=== PATIENT | female | born 1995 | race Caucasian/White ===

== ENCOUNTER → 2019-03-25 | Outpatient (CLI) | payer OTHER ==
--- NOTE | 2019-03-26 01:20 | MR ---
EXAMINATION TYPE: MR brain wo/w con DATE OF EXAM: 03/25/2019 COMPARISON: None HISTORY: Optic papillitis, bilateral TECHNIQUE: Multiplanar, multisequence images of the brain and brainstem is performed without and with IV contras t, utilizing 7 mL intravenous Gadavist . FINDINGS: There is mild enlargement of the ventricles. There is thinning of the corpus callosum. Ther e is no evidence of any cerebral white matter edema. Diffusion images show no evidence of a cortical infarct. There is no evidence of cerebral cortical ed gavin. The globes are symmetric. There is no evidence of retro-orbital mass. I do not see any significant edema of the optic nerves. Optic nerves are not enlarged. Contrast images show normal contrast opacification of the venous sinuses. There is no pathologic enha ncement. On the FLAIR images there is a single 4 mm focus of increased signal at the farris-white matter junctio n right posterior frontal lobe of doubtful significance. The brainstem is intact. Cerebellum is intact. IMPRESSION: Minimal hydrocephalus for the patient's young age. No cerebral edema. I do not see any ev idence for demyelinating disease. Mild thinning of the corpus callosum of uncertain significance.
== END | disposition home or self-care (01) ==
LOC: RADMRIMAIN 08:29
PROVIDERS: ATTEND Ophthalmology
DX: R94.02 Abnormal brain scan (principal)
CPT/HCPCS: 70553; A9585

== ENCOUNTER 2020-10-28 06:58 | Emergency (ER) | payer OTHER ==
[2020-10-28 07:03] VITALS: RESP 18; TEMP 97.7
[2020-10-28] MEDS ORDERED: HYDROmorphone 0.5 MG/0.5 ML SYRINGE IVP STA (07:26)
[2020-10-28] MEDS ORDERED: SODIUM CHLORIDE 0.9% 1,000 ML IV STA (07:26)
[2020-10-28] MEDS ORDERED: ONDANSETRON 4 MG/2 ML VIAL IVP STA (07:30)
--- NOTE | 2020-10-28 07:33 | ED ---
General Adult HPI - General Chief complaint: Abdominal Pain Stated complaint: ABD Pain Time Seen by Provider: 10/28/20 07:08 Source: patient Mode of arrival: wheelchair Limitations: no limitations - History of Present Illness Initial comments: 25-year-old female presents to the emergency room for abdominal pain. Patient reports that she had a medically induced with her first pill on Friday and her second toe on . Patient states she started to have bleeding like a period on Friday which she had a supposed to happen. However today she had severe abdominal pain so presented to the emergency room. Patient states she was about 6 weeks when she underwent the but believes her last period was August 26. Patient reports his was done in [place] at [facility]. She sees Dr Meyer out of [facility]. Patient has no other complaints at this time including shortness of breath, chest pain, fabienne sea or vomiting, headache, or visual changes. - Related Data Previous Rx's Medication Instructions Recorded Ibuprofen [Motrin] 600 mg PO Q8HR PRN #15 tab 02/26/16 SILVER sulfADIAZINE CREAM 1 applic TOPICAL BID #1 tube 02/26/16 [Silvadene Cream] Allergies Allergy/AdvReac Type Severity Reaction Status Date / Time No Known Allergies Allergy Verified 10/28/20 07:03 Review of Systems ROS Statement: Those systems with pertinent positive or pertinent negative responses have been documented in the HPI. ROS Other: All systems not noted in ROS Statement are negative. Past Medical History Past Medical History: Skin Disorder History of Any Multi-Drug Resistant Organisms: None Reported Additional Past Surgical History / Comment(s): shobha Past Psychological History: Anxiety, Depression Smoking Status: Vaper Past Alcohol Use History: None Reported Past Drug Use History: Marijuana General Exam Limitations: no limitations General appearance: alert, in no apparent distress Head exam: Present: atraumatic, normocephalic, normal inspection Eye exam: Present: normal appearance, PERRL, EOMI. Absent: scleral icterus, conjunctival injection, periorbital swelling ENT exam: Present: normal exam, mucous membranes moist Neck exam: Present: normal inspection, full ROM. Absent: tenderness, meni ngismus, lymphadenopathy Respiratory exam: Present: normal lung sounds bilaterally. Absent: respiratory distress, wheezes, rales, rhonchi, stridor Cardiovascular Exam: Present: regular rate, normal rhythm, normal heart sounds. Absent: systolic murmur, diastolic murmur, rubs, gallop, clicks GI/Abdominal exam: Present: soft, tenderness (generalized lower abdominal tenderness), normal bowel sounds. Absent: distended, guarding, rebound, rigid External exam: Present: normal external exam. Absent: erythema, swelling, lesions, lacerations Speculum exam: Present: vaginal bleeding (minimal), tissue (removed). Absent: normal speculum exam, erythema, vaginal discharge, cervical discharge By manual exam: Present: normal by manual exam. Absent: cervical motion tenderness, adnexal tenderness, adnexal mass, uterine enlargement, uterine tenderness Course Vital Signs 10/28/20 10/28/20 06:59 09:03 Temperature 97.7 F Pulse Rate 70 68 Respiratory 18 18 Rate Blood Pressure 131/86 110/70 O2 Sat by Pulse 100 98 Oximetry Medical Decision Making - Medical Decision Making Vitals are stable. CBC CMP unremarkable. Urinalysis does show greater than 182 red blood cells which are likely secondary to vaginal bleeding. On on pelvic exam patient did have some tissue in the vaginal canal which is removed. Minimal vaginal bleeding. ultrasound does report a thin-walled right ovarian cyst. Nonspecific endometrial findings showing 16 mm without significant internal vascularity. No pole. No intrauterine id entified. Patient likely passed fetus as she does report there was an IUP at the clinic. She did have some clot and tissue in the vaginal canal that was removed. Repeat abdominal exam was benign, no tenderness. Patient is stable for outpatient follow-up with strict return parameters. We will repeat patient's hCG in 2 days. Patient was given RhoGAM here as she is A- blood type. She has an DRAPERY ROD ASSEMBLER and [facility] will follow up with them first thing Friday morning. - Lab Data Result diagrams: 10/28/20 07:48 10/28/20 07:48 Lab Results 10/28/20 10/28/20 10/28/20 Range/Units 07:48 07:48 08:45 WBC 12.7 H (3.8-10.6) k/uL RBC 4.51 (3.80-5.40) m/uL Hgb 14.0 (11.4-16.0) gm/dL Hct 39.6 (34.0-46.0) % MCV 87.7 (80.0-100.0) fL MCH 31.0 (25.0-35.0) pg MCHC 35.4 (31.0-37.0) g/dL RDW 12.4 (11.5-15.5) % Plt Count 194 (150-450) k/uL MPV 7.7 Neutrophils % 78 % Lymphocytes % 14 % Monocytes % 5 % Eosinophils % 1 % Basophils % 0 % Neutrophils # 9.8 H (1.3-7.7) k/uL Lymphocytes # 1.8 (1.0-4.8) k/uL Monocytes # 0.6 (0-1.0) k/uL Eosinophils # 0.2 (0-0.7) k/uL Basophils # 0.0 (0-0.2) k/uL Sodium 135 L (137-145) mmol/L Potassium 4.4 (3.5-5.1) mmol/L Chloride 107 (98-107) mmol/L Carbon Dioxide 18 L (22-30) mmol/L Anion Gap 10 mmol/L BUN 11 (7-17) mg/dL Creatinine 0.49 L (0.52-1.04) mg/dL Est GFR (CKD-EPI)AfAm >90 (>60 ml/min/1.73 sqM) Est GFR (CKD-EPI)NonAf >90 (>60 ml/min/1.73 sqM) Glucose 121 H (74-99) mg/dL Calcium 9.4 (8.4-10.2) mg/dL Total Bilirubin 0.8 (0.2-1.3) mg/dL AST 33 (14-36) U/L ALT 15 (4-34) U/L Alkaline Phosphatase 53 (38-126) U/L Total Protein 7.2 (6.3-8.2) g/dL Albumin 4.2 (3.5-5.0) g/dL HCG, Quant 93689.5 mIU/mL Urine Color Yellow Urine Appearance Cloudy H (Clear) Urine pH 7.0 (5.0-8.0) Ur Specific [place] 1.021 (1.001-1.035) Urine Protein Trace H (Negative) Urine Glucose (UA) Negative (Negative) Urine Ketones 1+ H (Negative) Urine Blood Large H (Negative) Urine Nitrite Negative (Negative) Urine Bilirubin Negative (Negative) Urine Urobilinogen <2.0 (<2.0) mg/dL Ur Leukocyte Esterase Trace H (Negative) Urine RBC >182 H (0-5) /hpf Urine WBC 3 (0-5) /hpf Ur Squamous Epith Cells 1 (0-4) /hpf Amorphous Sediment Rare H (None) /hpf Urine Bacteria Rare H (None) /hpf Urine Mucus Occasional H (None) /hpf Blood Type Blood Type Confirm Blood Type Recheck Bld Type Recheck Status Antibody Screen Spec Expiration Date 10/28/20 10/28/20 Range/Units 08:50 08:54 WBC (3.8-10.6) k/uL RBC (3.80-5.40) m/uL Hgb (11.4-16.0) gm/dL Hct (34.0-46.0) % MCV (80.0-100.0) fL MCH (25.0-35.0) pg MCHC (31.0-37.0) g/dL RDW (11.5-15.5) % Plt Count (150-450) k/uL MPV Neutrophils % % Lymphocytes % % Monocytes % % Eosinophils % % Basophils % % Neutrophils # (1.3-7.7) k/uL Lymphocytes # (1.0-4.8) k/uL Monocytes # (0-1.0) k/uL Eosinophils # (0-0.7) k/uL Basophils # (0-0.2) k/uL Sodium (137-145) mmol/L Potassium (3.5-5.1) mmol/L Chloride (98-107) mmol/L Carbon Dioxide (22-30) mmol/L Anion Gap mmol/L BUN (7-17) mg/dL Creatinine (0.52-1.04) mg/dL Est GFR (CKD-EPI)AfAm (>60 ml/min/1.73 sqM) Est GFR (CKD-EPI)NonAf (>60 ml/min/1.73 sqM) Glucose (74-99) mg/dL Calcium (8.4-10.2) mg/dL Total Bilirubin (0.2-1.3) mg/dL AST (14-36) U/L ALT (4-34) U/L Alkaline Phosphatase (38-126) U/L Total Protein (6.3-8.2) g/dL Albumin (3.5-5.0) g/dL HCG, Quant mIU/mL Urine Color Urine Appearance (Clear) Urine pH (5.0-8.0) Ur Specific [place] (1.001-1.035) Urine Protein (Negative) Urine Glucose (UA) (Negative) Urine Ketones (Negative) Urine Blood (Negative) Urine Nitrite (Negative) Urine Bilirubin (Negative) Urine Urobilinogen (<2.0) mg/dL Ur Leukocyte Esterase (Negative) Urine RBC (0-5) /hpf Urine WBC (0-5) /hpf Ur Squamous Epith Cells (0-4) /hpf Amorphous Sediment (None) /hpf Urine Bacteria (None) /hpf Urine Mucus (None) /hpf Blood Type A Negative Blood Type Confirm A Negative Blood Type Recheck No Previous Record Bld Type Recheck Status CABO Indicated Antibody Screen NEGATIVE Spec Expiration Date 10/31/20202349 Disposition Clinical Impression: Vaginal bleeding, Elevated serum hCG, Embolism following medical Disposition: HOME SELF-CARE Condition: Good Instructions (If sedation given, give patient instructions): Miscarriage (ED) Additional Instructions: Please repeat hCG at outpatient lab in 2 days. Follow-up with your DRAPERY ROD ASSEMBLER as soon as possible. If you have worsening symptoms such as worsening pain or worsening bleeding return to the emergency room. Is patient prescribed a controlled substance at d/c from ED?: No Referrals: Ney Solano MD [Primary Care Provider] - 1-2 days Mahi Ortiz MD [STAFF PHYSICIAN] - 1-2 days Time of Disposition: 10:26
[2020-10-28 08:00] LABS: Basophils % (A) 0 %; Eosinophils # (A) 0.2 k/uL (0-0.7); Eosinophils % (A) 1 %; HCT 39.6 % (34.0-46.0); Lymphocytes # (A) 1.8 k/uL (1.0-4.8); Lymphocytes % (A) 14 %; MCHC 35.4 g/dL (31.0-37.0); MCV 87.7 fL (80.0-100.0); Mean Platelet Volume 7.7; Monocytes # (A) 0.6 k/uL (0-1.0); Monocytes % (A) 5 %; Neutrophils # (A) 9.8 k/uL (1.3-7.7); Neutrophils % (A) 78 %; Platelet Count 194 k/uL (150-450); RBC 4.51 m/uL (3.80-5.40); RDW 12.4 % (11.5-15.5); WBC 12.7 k/uL (3.8-10.6)
[2020-10-28 08:08] LABS: ALT 15 U/L (4-34); African American GFR (CKD) >90 (>60 ml/min/1.73 sqM); Anion Gap 10 mmol/L; Blood Urea Nitrogen 11 mg/dL (7-17); Calcium 9.4 mg/dL (8.4-10.2); Carbon Dioxide 18 mmol/L (22-30); Chloride 107 mmol/L (98-107); Glucose 121 mg/dL (74-99); Non-African American GFR(CKD) >90 (>60 ml/min/1.73 sqM); Sodium 135 mmol/L (137-145); Total Bilirubin 0.8 mg/dL (0.2-1.3)
[2020-10-28 08:26] LABS: Potassium 4.4 mmol/L (3.5-5.1)
[2020-10-28 08:27] LABS: AST 33 U/L (14-36); Albumin 4.2 g/dL (3.5-5.0); Alkaline Phosphatase 53 U/L (38-126); Total Protein 7.2 g/dL (6.3-8.2)
[2020-10-28 09:03] LABS: HCG,Quantitative Serum 16898.5 mIU/mL
[2020-10-28 09:05] LABS: Amorphous Sediment,Urine Rare /hpf; Appearance,Urine Cloudy (Clear); Bacteria,Urine Rare /hpf; Bilirubin,Urine Negative (Negative); Blood,Urine Large (Negative); Color,Urine Yellow; Glucose,Urine (UA) Negative (Negative); Ketones,Urine 1+ (Negative); Leukocyte Esterase,Urine Trace (Negative); Mucus,Urine Occasional /hpf; Nitrite,Urine Negative (Negative); Protein,Urine Trace (Negative); RBC,Urine >182 /hpf (0-5); Specific Gravity,Urine 1.021 (1.001-1.035); Squamous Epithelial Cell,Urine 1 /hpf (0-4); Urobilinogen,Urine <2.0 mg/dL (<2.0); WBC,Urine 3 /hpf (0-5)
--- NOTE | 2020-10-28 09:13 | US ---
EXAMINATION TYPE: Transabdominal DATE OF EXAM: 10/28/2020 8:54 AM COMPARISON: NONE CLINICAL HISTORY: pain, medical ABO 10/26. Medical 3 days ago, cramping and bleeding x 3 days , 1, 1 EXAM PERFORMED: Transabdominal (TA) EXAM MEASUREMENTS: GESTATIONAL AGE / DATING Physician Established: Not yet established Dates by LMP: (9 weeks/0 days) EDC: 06/02/2021 Dates by First Scan: No previous this is first scan Dates by Current Scan for: No IUP seen at this time MATERNAL ANATOMY Uterus: 7.9 x 3.6 x 4.3cm, anteverted Endometrium: 1.6cm Right Ovary: 5.5 x 3.5 x 3.7cm, 2.7 x 3.0 x 3.4cm cyst Left Ovary: 2.4 x 1.4 x 1.6cm Post CDS / Adnexa: wnl Presence of free fluid: no GESTATION / SURVEY IUP: No IUP seen at this time Date of LMP: 08/26/2020 Beta HcG (if available): Not available at time of exam Heterogeneous anteverted uterus. Endometrium somewhat poorly seen measuring up to 16 mm without signi ficant internal vascularity. No gestational sac, yolk sac, or pole. No free fluid. Both ovaries seen with 2 thin-walled cysts in the right ovary, largest measures 5.5 cm in diameter. IMPRESSION: Note is made of 2 thin-walled right ovarian cysts. Nonspecific endometrial findings. No i ntrauterine identified.
[2020-10-28] MEDS ORDERED: Rhogam IMMUNE GLOBULIN 1,500 UNIT/1 ML IM STA (09:56)
[2020-10-28 10:39] VITALS: BP 114/79; PULSE 72
== END 2020-10-28 10:41 | disposition home or self-care (01) ==
LOC: EC 06:58
DX: N93.9 Abnormal uterine and vaginal bleeding, unspecified (principal); F32.9 Major depressive disorder, single episode, unspecified; F41.9 Anxiety disorder, unspecified; F12.90 Cannabis use, unspecified, uncomplicated; R89.1 Abnormal level of hormones in specimens from other organs, systems and tissues
CPT/HCPCS: 36415; 86900; 86901; 80053; 85025; 86850; 81001; 84702; 76801; 99284; 96372; 96374; 96375; 96361; J2790; J2405; J1170

== ENCOUNTER 2021-05-11 05:37 | Emergency (ER) | payer OTHER ==
[2021-05-11 05:42] VITALS: BP 118/82; PULSE 80; RESP 16; TEMP 98.5
[2021-05-11] MEDS ORDERED: AMOXIC-POT CLAV 875MG STARTER PACK 2 TAB BTL PO STA (06:26)
[2021-05-11] MEDS ORDERED: IBUPROFEN 600 MG TAB PO STA (06:28)
--- NOTE | 2021-05-11 06:28 | ED ---
General Adult HPI - General Chief complaint: ENT Stated complaint: RT ear pain Time Seen by Provider: 05/11/21 06:08 Source: patient Mode of arrival: ambulatory Limitations: no limitations - History of Present Illness Initial comments: 25-year-old female presents to the emergency room for right ear pain. Patient has had right ear pain for the past 3 days that worsened this morning around 3 AM. Patient denies headache but does admit to cold symptoms over the past week or so. Tested negative for COVID-19. No fevers.Patient has no other complaints at this time including shortness of breath, chest pain, abdominal pain, nausea or vomiting, headache, or visual changes. - Related Data Previous Rx's Medication Instructions Recorded Ibuprofen [Motrin] 600 mg PO Q8HR PRN #15 tab 02/26/16 SILVER sulfADIAZINE CREAM 1 applic TOPICAL BID #1 tube 02/26/16 [Silvadene Cream] Amoxicillin/Potassium Clav 1 tab PO Q12HR #20 tab 05/11/21 [Augmentin 875-125 Tablet] Allergies Allergy/AdvReac Type Severity Reaction Status Date / Time No Known Allergies Allergy Verified 05/11/21 05:39 Review of Systems ROS Statement: Those systems with pertinent positive or pertinent negative responses have been documented in the HPI. ROS Other: All systems not noted in ROS Statement are negative. Past Medical History Past Medical History: Skin Disorder History of Any Multi-Drug Resistant Organisms: None Reported Additional Past Surgical History / Comment(s): nasel Past Psychological History: Anxiety, Depression Smoking Status: Vaper Past Alcohol Use History: None Reported Past Drug Use History: Marijuana General Exam Limitations: no limitations General appearance: alert, in no apparent distress Head exam: Present: atraumatic Eye exam: Present: normal appearance, PERRL, EOMI. Absent: scleral icterus, conjunctival injection ENT exam: Present: normal exam, mucous membranes moist. Absent: TM's normal bilaterally (Right tympanic membrane appears erythematous and bulging) Neck exam: Present: normal inspection, full ROM. Absent: tenderness Respiratory exam: Present: normal lung sounds bilaterally. Absent: respiratory distress, wheezes Cardiovascular Exam: Present: regular rate, normal rhythm, normal heart sounds Course Vital Signs 05/11/21 05:40 Temperature 98.5 F Pulse Rate 80 Respiratory 16 Rate Blood Pressure 118/82 O2 Sat by Pulse 98 Oximetry Medical Decision Making - Medical Decision Making Patient will be treated with Augmentin for otitis media. Will follow up with her doctor and return here for any worsening symptoms. Disposition Clinical Impression: Otitis media Disposition: HOME SELF-CARE Condition: Good Instructions (If sedation given, give patient instructions): Ear Infection (ED) Additional Instructions: Please take antibiotic as directed. Take Motrin and Tylenol for pain. Follow- up with your doctor or ENT. Return to the emergency room for any worsening symptoms. Prescriptions: Amoxicillin/Potassium Clav [Augmentin 875-125 Tablet] 1 tab PO Q12HR #20 tab Is patient prescribed a controlled substance at d/c from ED?: No Referrals: Ney Solano MD [Primary Care Provider] - 1-2 days Kayode Orozco MD [STAFF PHYSICIAN] - 1-2 days Time of Disposition: 06:27
== END 2021-05-11 06:38 | disposition home or self-care (01) ==
LOC: EC 05:37
DX: H66.90 Otitis media, unspecified, unspecified ear (principal); F41.9 Anxiety disorder, unspecified; F32.A Depression, unspecified; F17.290 Nicotine dependence, other tobacco product, uncomplicated; F12.90 Cannabis use, unspecified, uncomplicated
CPT/HCPCS: 99282

== ENCOUNTER 2021-12-01 23:45 | Inpatient (IN) | payer OTHER ==
[2021-12-02] MEDS ORDERED: HYDROmorphone (PF) 1 MG/ML ONE (00:17)
[2021-12-02] MEDS ORDERED: SUCCINYLCHOLINE CHLORIDE 200 MG/10 ML VIAL IV ONE (00:17)
[2021-12-02] MEDS ORDERED: ONDANSETRON 4 MG/2 ML VIAL ONE (00:17)
[2021-12-02] MEDS ORDERED: fentaNYL (PF) 50 MCG/ML 2 ML AMP ONE (00:17)
[2021-12-02] MEDS ORDERED: OXYTOCIN 10 UNIT/ML 1 ML VIAL ONE (00:17)
[2021-12-02] MEDS ORDERED: PROPOFOL 10 MG/ML 20 ML VIAL IV ONE (00:17)
[2021-12-02] MEDS ORDERED: OXYTOCIN 30 UNITS/500 ML NS BAG IV ONE (00:17)
[2021-12-02] MEDS ORDERED: ceFAZolin 1,000 MG VIAL ONE (00:17)
[2021-12-02] MEDS ORDERED: SIMETHICONE 80 MG CHEWABLE PO PRN (01:00)
[2021-12-02] MEDS ORDERED: diphenhydrAMINE 50 MG/ML 1 ML VIAL IVP PRN (01:00)
[2021-12-02] MEDS ORDERED: LANOLIN CREAM 5 GM TUBE TOPICAL PRN (01:00)
[2021-12-02] MEDS ORDERED: NALOXONE 0.4 MG/ML 1 ML VIAL IV PRN (01:00)
[2021-12-02] MEDS ORDERED: METOCLOPRAMIDE 5 MG/ML 2 ML VIAL IVP PRN (01:00)
[2021-12-02] MEDS ORDERED: OXYTOCIN 30 UNITS/500 ML NS 30 UNIT in SALINE 1 500ML.BAG IV SCH (01:00)
[2021-12-02] MEDS ORDERED: ONDANSETRON 4 MG/2 ML VIAL IVP PRN (01:00)
[2021-12-02] MEDS ORDERED: diphenhydrAMINE 25 MG CAP PO PRN (01:00)
[2021-12-02] MEDS ORDERED: ZOLPIDEM 5 MG TAB PO PRN (01:00)
[2021-12-02] MEDS ORDERED: Rhogam IMMUNE GLOBULIN 1,500 UNIT/1 ML IM ONE (01:00)
--- NOTE | 2021-12-02 01:29 | P.HPOB ---
History of Present Illness H&P Date: 12/02/21 Chief Complaint: Vaginal bleeding and abdominal pain Please note this H&P is dictated post delivery due to the emergency nature of the clinical situation. This patient is a 26-year-old 2 para 0 female estimated date of confinement 12/28/2021 estimated gestational age 36-2/7 weeks gestation who resented to labor and delivery with complaints of leaking of fluid and abdominal pain after having intercourse. On arrival to labor and delivery, patient is noted to be having copious amount of vaginal bleeding, abdominal tenderness, and repetitive late decelerations. Patient was immediately taken to the operating room for emergency . Review of the patient's chart shows that she transferred to Dr. Serrano at [address] Sr and has been watched for intrauterine growth restriction. Most recent ultrasound showed the baby to be less than the 10th percentile. Ultrasound on November 26 shows the baby to be 3 lbs. 12 oz. otherwise appears to been uncomplicated, other than marijuana use. Review of Systems Genitourinary: Reports as per HPI, Reports abnormal vaginal bleeding, Reports Past Medical History Past Medical History: No Reported History, Skin Disorder History of Any Multi-Drug Resistant Organisms: None Reported Past Surgical History: No Surgical Hx Reported Additional Past Surgical History / Comment(s): shobha Past Psychological History: Anxiety, Depression Smoking Status: Vaper Past Alcohol Use History: None Reported Past Drug Use History: Marijuana Medications and Allergies Home Medications Medication Instructions Recorded Confirmed Type Ibuprofen [Motrin] 600 mg PO Q8HR PRN #15 tab 02/26/16 Rx SILVER sulfADIAZINE CREAM 1 applic TOPICAL BID #1 tube 02/26/16 Rx [Silvadene Cream] Amoxicillin/Potassium Clav 1 tab PO Q12HR #20 tab 05/11/21 Rx [Augmentin 875-125 Tablet] Allergies Allergy/AdvReac Type Severity Reaction Status Date / Time No Known Allergies Allergy Verified 05/11/21 05:39 Exam - OBG Physical Exam Abdomen: bowel sounds normal, no diffuse tenderness, no bruit present, no guarding noted, no hepatomegaly, no splenomegaly, no mass Vulva: both: normal Vagina: Vaginal bleeding Uterus: Abdomen appears small for dates. Results blood work shows she is A-, hepatitis B is nonreactive, HIV is nonreactive, RPR is nonreactive, patient received RhoGAM on October 17. Ultrasound on November 26 showed the baby 3 lbs. 12 oz. which is much less than the 10th percentile. Assessment and Plan Assessment: This is a pleasant 26-year-old 2 para 0 female 36-2/7 weeks gestation presented to labor and delivery with clinical placental abruption, symmetric IUGR, and category 3 heart tones. Patient was taken immediately from triage to the operating room and underwent an emergent section (please see dictated operative note). I did discuss very briefly with the patient and her partner the clinical findings and need for immediate delivery by general anesthetic. She understood and wished to proceed. (1) 36 weeks gestation of Current Visit: Yes Status: Acute Code(s): Z3A.36 - 36 WEEKS GESTATION OF SNOMED Code(s): 40548141 (2) Symmetric IUGR Current Visit: Yes Status: Acute Code(s): OPR6460 - SNOMED Code(s): 467861402 (3) Placenta abruption, delivered, current hospitalization Current Visit: Yes Status: Acute Code(s): O45.90 - PREMATURE SEPARATION OF PLACENTA, UNSP, UNSP TRIMESTER SNOMED Code(s): 920801497
[2021-12-02] MEDS: LACTATED RINGERS 1,000 ML IV SCH ×3 (01:37→19:25)
[2021-12-02 01:52] LABS: Basophils % (A) 0 %; Eosinophils # (A) 0.1 k/uL (0-0.7); Eosinophils % (A) 1 %; HCT 39.1 % (34.0-46.0); HGB 12.6 gm/dL (11.4-16.0); Lymphocytes # (A) 1.8 k/uL (1.0-4.8); Lymphocytes % (A) 13 %; MCH 29.4 pg (25.0-35.0); MCHC 32.2 g/dL (31.0-37.0); MCV 91.5 fL (80.0-100.0); Mean Platelet Volume 10.3; Monocytes # (A) 0.8 k/uL (0-1.0); Monocytes % (A) 6 %; Neutrophils # (A) 10.7 k/uL (1.3-7.7); Neutrophils % (A) 80 %; Platelet Count 201 k/uL (150-450); RBC 4.27 m/uL (3.80-5.40); RDW 13.1 % (11.5-15.5); WBC 13.5 k/uL (3.8-10.6)
--- NOTE | 2021-12-02 01:54 | P.OP ---
Date of Procedure: 12/02/21 Preoperative Diagnosis: #1: 36-2/7 week intrauterine . #2: Clinical placental abruption #3: Category 3 heart tones #4: Symmetric IUGR Postoperative Diagnosis: Same Procedure(s) Performed: Emergent primary low transverse section Anesthesia: HERLINDA Surgeon: Ignacio Hess Paper Tube Machine Operator #1: Opal Landon Estimated Blood Loss (ml): 600 Pathology: other (Placenta) Condition: stable Disposition: floor Indications for Procedure: Please see dictated H&P on this patient's admission. In brief summary this is a 26-year-old 2 para 0 female 36-2/7 weeks gestation admitted to labor and delivery with concerns for leaking of fluid and found to have vaginal bleeding, abdominal pain, and category 3 heart tones. The nursing staff felt patient was having a clinical abruption and contacted me immediately. On my way to the hospital I did contact my blood and plasma laboratory assistant and also contacted the staff to let anesthesia know labor going to do an emergency . Upon my arrival I confirmed the heart tones and I quickly discussed with the patient need for delivery. She understood the need for general anesthetic and surgery. She wished to proceed and her questions were answered. Operative Findings: This is a viable female infant Apgars were 4, 8, and 9. Patient had approximately 20% placental abruption. Infant was 4 lbs. 0 oz. or 1830 g and did appear growth restricted. Description of Procedure: Patient was taken to the operating room at 0117 hrs. Start of the procedure was 0020 hours. Delivery was 0025 hours. This patient is taken directly from the triage area to the operating room. Patient's has a Jefferson catheter placed in triage. She is placed on the operating room table in the supine position. After explaining the procedure briefly to the patient I did a timeout the staff and the patient's abdomen was prepped and draped. Patient subsequently underwent rapid sequence general endotracheal anesthesia. As soon as anesthesia was assured a scalpel is taken and a Pfannenstiel skin incision is made and taken down to the fascia. Fascia is extended bilaterally using the Putnam scissors. Fascia is dissected off the rectus muscles sharply. Rectus muscles are the peritoneum identified and entered bluntly. Incision extended bluntly. Bladder blade is placed. Scalpels taken a low transverse incision is made up above the bladder reflection. A hemostat was then used to enter the uterine cavity. There is loss of clear fluid. The is delivered through the incision with fundal pressure. Mouth and nares are bulb suctioned. There is no evidence of a nuchal cord. The umbilical cord was immediately clamped and cut and the baby is handed off to the special care nursery personnel. This is a viable female Apgars are 4 at 1 minute, 8 at 5 minutes, and 9 at 10 minutes. With this done a approximately 5 or 6 cm clot does come out of the uterine cavity. Inspect the uterine cavity and there is a approximately 20% placental abruption and there is more dark red clots. The placenta is then handed off to pathology. Uterus is externalized. Uterine incision is demarcated with Hernandez clamps. Uterine incision is then closed using 0 Vicryl running locked fashion in 2 layers. There is an area in the middle of the incision requires a [id number] stitch for added hemostasis. With this done the excess fluid is removed from the abdomen and pelvis. The uterus, tubes, ovaries appear normal for term gestation. Uterus placed back into the abdomen. Parietal peritoneum was then identified and closed using 0 Vicryl running fashion. Rectus muscles reapproximated in 0 Vicryl interrupted fashion. Fascia is then closed using 0 PDS. Fascial incision is intact and hemostatic. Subcutaneous tissues and closed using a 3-0 Vicryl. Skin is and closed using sidney. All counts are correct 3. Patient is awakened from anesthesia and taken to her birthing suite in satisfactory condition. Baby is taken to special care for evaluation. There are no compilations.
[2021-12-02] MEDS ORDERED: HYDROmorphone PCA 10 MG/50 ML BAG IV PRN (02:00)
[2021-12-02] MEDS: ACETAMINOPHEN TAB 500 MG TAB PO SCH ×3 (06:42→18:08)
--- NOTE | 2021-12-02 07:27 | P.PN ---
Progress Note - Text Progress Note Date: 12/02/21 Patient is resting without new complaints. Vital signs are stable she's afebrile. Her incision is intact and dry. Baby is doing well but had to go back to special care due to temperature issues and its size. Plan today is to advance her diet, discontinue her catheter, discontinue the LAMPS TESTER AND INSPECTOR, check a CBC, allow the patient to shower, and continue routine postoperative care.
[2021-12-02] MEDS: SENNOSIDES-DOCUSATE SODIUM 1 EACH TAB PO SCH ×2 (08:25→19:35)
[2021-12-02] MEDS: IBUPROFEN 600 MG TAB PO SCH ×2 (14:43→19:25)
[2021-12-02] MEDS: KETOROLAC 15 MG/ML 1 ML VIAL IVP SCH (19:24)
[2021-12-03] MEDS: IBUPROFEN 600 MG TAB PO SCH ×5 (00:27→23:39)
[2021-12-03] MEDS: ACETAMINOPHEN TAB 500 MG TAB PO SCH ×2 (04:21→04:24)
[2021-12-03] MEDS: KETOROLAC 15 MG/ML 1 ML VIAL IVP SCH (04:33)
[2021-12-03] MEDS: LACTATED RINGERS 1,000 ML IV SCH (04:33)
[2021-12-03 07:41] LABS: HCT 32.1 % (34.0-46.0); HGB 10.6 gm/dL (11.4-16.0); MCH 30.4 pg (25.0-35.0); MCHC 32.9 g/dL (31.0-37.0); MCV 92.3 fL (80.0-100.0); Mean Platelet Volume 9.1; Platelet Count 153 k/uL (150-450); RBC 3.48 m/uL (3.80-5.40); RDW 13.6 % (11.5-15.5); WBC 10.3 k/uL (3.8-10.6)
[2021-12-03] MEDS: SENNOSIDES-DOCUSATE SODIUM 1 EACH TAB PO SCH ×2 (08:26→20:30)
[2021-12-03 10:48] LABS: Lymphocytes # (M) 1.13 k/uL (1.0-4.8); Monocytes # (M) 0.62 k/uL (0-1.0); Neutrophils # (M) 8.55 k/uL (1.3-7.7); Neutrophils % (M) 83 %; Nucleated Red Blood Cells 0 /100 WBC (0-0); Total Cells Counted 100
[2021-12-03 10:49] LABS: RBC Morphology Normal
[2021-12-04] MEDS: ACETAMINOPHEN TAB 500 MG TAB PO SCH ×6 (07:30→23:21)
[2021-12-04] MEDS: LACTATED RINGERS 1,000 ML IV SCH (07:30)
[2021-12-04] MEDS: KETOROLAC 15 MG/ML 1 ML VIAL IVP SCH (07:31)
[2021-12-04] MEDS: IBUPROFEN 600 MG TAB PO SCH ×3 (07:31→14:21)
--- NOTE | 2021-12-04 07:51 | P.PNOBGPC ---
Subjective - Subjective Principal diagnosis: S/P 1*LTCS POD #1 Interval history: Pt seen and examined. Denies N/V, F/C, CP, SOB, calf pain. Patient reports: Reports appetite normal, Reports voiding normally, Reports pain well controlled, Reports ambulating normally Objective - Vital Signs Latest vital signs: Vital Signs Temp Pulse Resp BP Pulse Ox 12/03/21 23:41 98.6 F 75 18 111/72 99 12/03/21 16:30 98.7 F 87 16 137/82 97 12/03/21 08:44 97.9 F 68 16 116/76 Intake and Output 12/03/21 12/04/21 12/04/21 22:59 06:59 14:59 Other: # Voids 1 2 - Exam Lungs: bilateral: normal Chest: Normal S1, Normal S2 Extremities: Present: normal Abdomen: Present: normal appearance, soft. Absent: distention, tenderness Incision: Present: normal, dry, intact Uterus: Present: normal, firm - Labs Labs: Abnormal Lab Results - Last 24 Hours (Table) 12/03/21 Range/Units 06:53 Neutrophils # (Manual) 8.55 H (1.3-7.7) k/uL Assessment and Plan (1) Status post primary low transverse section Current Visit: Yes Status: Acute Code(s): Z98.891 - HISTORY OF UTERINE SCAR FROM PREVIOUS SURGERY SNOMED Code(s): 376785990 (2) Anemia due to acute blood loss Current Visit: Yes Status: Acute Code(s): D62 - ACUTE POSTHEMORRHAGIC ANEMIA SNOMED Code(s): 177743327 Plan: 1. increase ambulation 2. pain control
--- NOTE | 2021-12-04 07:53 | P.PNOBGPC ---
Subjective - Subjective Principal diagnosis: S/P 1*LTCS POD #2 Interval history: Patient seen and examined. Doing very well. pain controlled. Denies N/V, F/C, CP, SOB, calf pain Patient reports: Reports appetite normal, Reports voiding normally, Reports pain well controlled, Reports ambulating normally Objective - Vital Signs Latest vital signs: Vital Signs Temp Pulse Resp BP Pulse Ox 12/03/21 23:41 98.6 F 75 18 111/72 99 12/03/21 16:30 98.7 F 87 16 137/82 97 12/03/21 08:44 97.9 F 68 16 116/76 Intake and Output 12/03/21 12/04/21 12/04/21 22:59 06:59 14:59 Other: # Voids 1 2 - Exam Lungs: bilateral: normal Chest: Normal S1, Normal S2 Extremities: Present: normal Abdomen: Present: normal appearance, soft. Absent: distention, tenderness Incision: Present: normal, dry, intact Uterus: Present: normal, firm - Labs Labs: Abnormal Lab Results - Last 24 Hours (Table) 12/03/21 Range/Units 06:53 Neutrophils # (Manual) 8.55 H (1.3-7.7) k/uL Assessment and Plan (1) Status post primary low transverse section Current Visit: Yes Status: Acute Code(s): Z98.891 - HISTORY OF UTERINE SCAR FROM PREVIOUS SURGERY SNOMED Code(s): 357266278 (2) Anemia due to acute blood loss Current Visit: Yes Status: Acute Code(s): D62 - ACUTE POSTHEMORRHAGIC ANEMIA SNOMED Code(s): 531568114 Plan: 1. cont atc pain meds-motrin and tylenol 2. reg diet 3. help/education on pumping
[2021-12-04] MEDS: SENNOSIDES-DOCUSATE SODIUM 1 EACH TAB PO SCH (07:58)
[2021-12-05] MEDS: SENNOSIDES-DOCUSATE SODIUM 1 EACH TAB PO SCH ×3 (00:19→22:05)
[2021-12-05] MEDS: IBUPROFEN 600 MG TAB PO SCH ×5 (01:01→22:03)
[2021-12-05] MEDS: ACETAMINOPHEN TAB 500 MG TAB PO SCH ×3 (06:55→18:44)
--- NOTE | 2021-12-05 07:34 | P.PNOBGPC ---
Subjective - Subjective Principal diagnosis: Status post primary low transverse postop day #3 Interval history: Patient seen and examined. Denies nausea, vomiting, chest pain, shortness of breath or any calf pain. Patient reports: Reports appetite normal, Reports voiding normally, Reports pain well controlled, Reports ambulating normally Objective - Vital Signs Latest vital signs: Vital Signs Temp Pulse Resp BP Pulse Ox 12/05/21 00:00 98.0 F 70 16 122/72 12/04/21 15:38 97.9 F 81 16 116/79 99 12/04/21 08:05 97.7 F 89 16 104/71 97 Intake and Output 12/04/21 12/05/21 12/05/21 22:59 06:59 14:59 Other: Voiding Method Indwelling Catheter - Exam Lungs: bilateral: normal Chest: Normal S1, Normal S2 Extremities: Present: normal Abdomen: Present: normal appearance, soft. Absent: distention, tenderness Incision: Present: normal, dry, intact Uterus: Present: normal, firm Assessment and Plan (1) Status post primary low transverse section Current Visit: Yes Status: Acute Code(s): Z98.891 - HISTORY OF UTERINE SCAR FROM PREVIOUS SURGERY SNOMED Code(s): 769166533 (2) Anemia due to acute blood loss Narrative/Plan: Asymptomatic Current Visit: Yes Status: Acute Code(s): D62 - ACUTE POSTHEMORRHAGIC ANEMIA SNOMED Code(s): 017792344 Plan: 1. Continue postoperative care
--- NOTE | 2021-12-05 17:57 | P.MSEPDOC ---
Presenting Problems - Arrival Data Date of Arrival on Unit: 12/02/21 Time of Arrival on Unit: 23:50 Mode of Transport: Wheelchair - Complaint OB-Reason for Admission/Chief Complaint: Rule Out SROM Comment: Pt is a with RAMÓN 12/28/21 here at 36.1 weeks of gestation with c/o possible ROM. Pt states her and her SO went out to eat, got home and she noticed a small trickle of fluid so they came in for evaulation. Pt denies any additional complication at this time. Medical History - Information : 2 Para: 0 Abortions: Spontaneous or Elective: 1 Number of Living Children: 0 - Gestational Age Gestational Age by RAMÓN (wks/days): 36 Weeks and 2 Days - History Complications: Hx. Substance Abuse Comment: Marijuana use Review of Systems - Review of Systems Constitutional: No problems Breast: No problems ENT: No problems Cardiovascular: No problems Respiratory: No problems Gastrointestinal: No problems Genitourinary: No problems Musculoskeletal: No problems Neurological: No problems Skin: No problems Vital Signs - Temperature Temperature: 98.2 F Temperature Source: Oral - Pulse Right Pulse Oximetery Pulse Rate: 80 Pulse Assessment Method: Pulse Oximetry - Respirations Respiratory Rate: 15 Oxygen Delivery Method: Room Air O2 Sat by Pulse Oximetry: 99 - Blood Pressure Right Arm Blood Pressure: 105/73 Blood Pressure Mean: 83 Blood Pressure Source: Automatic Cuff Medical Screen Scoring - Assessment - Baby A Heart Rate - NICHD Category: Category II (Indeterminate) NST: Non-reactive Physician Notification - Physician Notified Physician Notified Date: 12/02/21 Physician Notified Time: 00:58 Physician: Ignacio Hess New Order Received: Yes - Notification Comment Comment: Dr. Hess notified of pt's arrival to triage. Maternal report given including. maternal vaginal bleeding, cramping and abdominal tenderness. report also given. including Cat 2 FHTs with 135 baseline, moderate variability and recurrent lates. Orders. to get peripheral IV access, labwork including a CBC and T&S, and prep for an emergent. C/S. All orders read back and verified with provider. Maternal Triage Index - Maternal Triage Index Presenting for scheduled procedure w/no complaint: No - Stat/Priority 1 Stat Priority 1: No - Urgent/Priority 2 Urgent Priority 2: Yes Provider Notified: Ignacio Hess Provider Notified Time: 00:58 Criteria Met for Priority 2: Dr. Hess notified of pt's arrival to triage. Maternal report given including. maternal vaginal bleeding, cramping and abdominal tenderness. report also given. including Cat 2 FHTs with 135 baseline, moderate variability and recurrent lates. Orders. to get peripheral IV access, labwork including a CBC and T&S, and prep for an emergent. C/S. All orders read back and verified with provider. Disposition - Disposition OB Disposition: Admit Transferred to:: OR - [facility] 5 I agree with the RN Medical Screening Exam: Yes Case reviewed; plan agreed upon as documented in EMR&OBIX.: Yes Diagnosis: PREMATURE SEPARATION OF PLACENTA, UNSP, THIRD TRIMESTER (Patient presents to labor and delivery with complaints of bleeding, abdominal pain, and nonreassuring heart tones. Patient's taken immediately for emergency section for suspected placental abruption. Please see dictated initial history and physical and delivery note.)
[2021-12-05 23:07] VITALS: TEMP 98
[2021-12-06] MEDS: ACETAMINOPHEN TAB 500 MG TAB PO SCH ×2 (02:17→08:05)
[2021-12-06] MEDS: IBUPROFEN 600 MG TAB PO SCH ×2 (04:32→08:06)
--- NOTE | 2021-12-06 07:27 | P.DS ---
Providers Date of admission: 12/01/21 23:50 Expected date of discharge: 12/06/21 Attending physician: Gem Serrano Primary care physician: Stated None - Discharge Diagnosis(es) (1) Status post primary low transverse section Current Visit: Yes Status: Acute (2) Anemia due to acute blood loss Current Visit: Yes Status: Acute Hospital Course: Patient presented at 36 weeks with heavy vaginal bleeding and signs of abruption. she had category 3 FHT and was taken for stat C/S by Dr Hess. Postoperatively she did very well. Her pain is controlled, she is tolerating a reg diet, passing flatus, voiding and ambulating without difficulty. She will be discharged home PPD #4 in stable condition to follow up with me in 1 week. Plan - Discharge Summary New Discharge Prescriptions: New Ibuprofen [Motrin] 600 mg PO Q6H #40 tab oxyCODONE HCL [OxyIR] 5 mg PO Q4HR PRN #18 tab PRN Reason: Pain Scale 4 - 6 Discharge Medication List Ibuprofen [Motrin] 600 mg PO Q6H #40 tab 12/06/21 [Rx] oxyCODONE HCL [OxyIR] 5 mg PO Q4HR PRN #18 tab 12/06/21 [Rx] Follow up Appointment(s)/Referral(s): Gem Serrano DO [Doctor of Osteopathic Medicine] - 1 Week Discharge Disposition: HOME SELF-CARE
[2021-12-06 08:01] VITALS: BP 119/80; PULSE 63; RESP 16
[2021-12-06] MEDS: SENNOSIDES-DOCUSATE SODIUM 1 EACH TAB PO SCH (08:06)
== END 2021-12-06 08:55 | disposition home or self-care (01) | DRG 787 ==
LOC: FBPOP 23:45 → 4FBP 23:50
PROVIDERS: ADMIT Obstetrics & Gynecology; ATTEND Obstetrics & Gynecology
PROC: 10D00Z1 Extraction of Products of Conception, Low, Open Approach (ICD-10-PCS; principal; 2021-12-02 00:20)
PROC: 30233S1 Transfusion of Nonautologous Globulin into Peripheral Vein, Percutaneous Approach (ICD-10-PCS; 2021-12-05)
DX: O45.93 Premature separation of placenta, unspecified, third trimester (principal); D62 Acute posthemorrhagic anemia; O99.324 Drug use complicating childbirth; Z3A.36 36 weeks gestation of pregnancy; O36.5930 Maternal care for other known or suspected poor fetal growth, third trimester, not applicable or unspecified; O99.344 Other mental disorders complicating childbirth; Z37.0 Single live birth; O76 Abnormality in fetal heart rate and rhythm complicating labor and delivery; F41.9 Anxiety disorder, unspecified; F32.A Depression, unspecified; O34.211 Maternal care for low transverse scar from previous cesarean delivery; F12.90 Cannabis use, unspecified, uncomplicated
CPT/HCPCS: 59025; 85025; 85461; 86850; 86870; 86880; 86900; 86901; 88307; 99215

== ENCOUNTER 2023-01-20 10:08 | Inpatient (IN) | payer OTHER ==
[2023-01-20] MEDS ORDERED: LACTATED RINGERS 1,000 ML IV ONE (10:17)
[2023-01-20] MEDS ORDERED: CITRIC ACID-SODIUM CITRATE 15 ML CUP PO ONE (10:17)
[2023-01-20] MEDS ORDERED: METHYLERGONOVINE 0.2 MG/ML 1 ML AMP IM PRN (10:17)
[2023-01-20] MEDS ORDERED: TRANEXAMIC 1,000 MG/100ML-NACL 1,000 MG in EMPTY BAG 1 BAG IV PRN (10:17)
[2023-01-20] MEDS ORDERED: CARBOPROST TROMETHAMINE 250 MCG/ML 1 ML AMP IM PRN (10:17)
[2023-01-20] MEDS ORDERED: miSOPROStoL 200 MCG TAB PO PRN (10:17)
[2023-01-20] MEDS ORDERED: OXYTOCIN 10 UNIT/ML 1 ML VIAL IM PRN (10:17)
[2023-01-20] MEDS ORDERED: LACTATED RINGERS 1,000 ML IV SCH (10:30)
[2023-01-20 10:45] LABS: Basophils % (A) 0 %; Eosinophils # (A) 0.1 k/uL (0-0.7); Eosinophils % (A) 1 %; HGB 10.8 gm/dL (11.4-16.0); Lymphocytes # (A) 1.2 k/uL (1.0-4.8); Lymphocytes % (A) 18 %; MCH 27.4 pg (25.0-35.0); MCHC 32.7 g/dL (31.0-37.0); MCV 83.6 fL (80.0-100.0); Mean Platelet Volume 9.2; Monocytes # (A) 0.3 k/uL (0-1.0); Monocytes % (A) 5 %; Neutrophils # (A) 5.1 k/uL (1.3-7.7); Neutrophils % (A) 74 %; Platelet Count 211 k/uL (150-450); RBC 3.95 m/uL (3.80-5.40); RDW 14.3 % (11.5-15.5); WBC 6.9 k/uL (3.8-10.6)
[2023-01-20] MEDS ORDERED: PHENYLEPHRINE-0.9% NACL SYG 1,000 MCG/10 ML SYRINGE ONE (12:17)
[2023-01-20] MEDS ORDERED: fentaNYL (PF) 50 MCG/ML 2 ML AMP ONE (12:17)
[2023-01-20] MEDS ORDERED: KETOROLAC 30 MG/ML 1 ML VIAL ONE (12:17)
[2023-01-20] MEDS ORDERED: MORPHINE SULFATE (PF) 0.3 MG/0.3 ML SYR ONE (12:17)
[2023-01-20] MEDS ORDERED: OXYTOCIN 10 UNIT/ML 1 ML VIAL ONE (12:17)
[2023-01-20] MEDS ORDERED: ONDANSETRON 4 MG/2 ML VIAL ONE (12:17)
[2023-01-20] MEDS ORDERED: HYDROmorphone 0.5 MG/0.5 ML SYRINGE IVP PRN (12:49)
[2023-01-20] MEDS ORDERED: NALBUPHINE 10 MG/ML (10 ML MDV) IV PRN (12:49)
[2023-01-20] MEDS ORDERED: ONDANSETRON 4 MG/2 ML VIAL IVP PRN (12:49)
[2023-01-20] MEDS ORDERED: NALOXONE 0.4 MG/ML 1 ML VIAL IV PRN ×2 (12:49→13:08)
[2023-01-20] MEDS ORDERED: diphenhydrAMINE 25 MG CAP PO PRN (13:08)
[2023-01-20] MEDS ORDERED: LANOLIN CREAM 5 GM TUBE TOPICAL PRN (13:08)
[2023-01-20] MEDS ORDERED: ZOLPIDEM 5 MG TAB PO PRN (13:08)
[2023-01-20] MEDS ORDERED: diphenhydrAMINE 50 MG/ML 1 ML VIAL IVP PRN ×2 (13:08)
[2023-01-20] MEDS ORDERED: METOCLOPRAMIDE 5 MG/ML 2 ML VIAL IVP PRN (13:08)
[2023-01-20] MEDS ORDERED: diphenhydrAMINE 50 MG CAP PO PRN (13:08)
[2023-01-20] MEDS ORDERED: SIMETHICONE 80 MG CHEWABLE PO PRN (13:08)
[2023-01-20] MEDS ORDERED: OXYTOCIN 30 UNITS/500 ML NS 30 UNIT in SALINE 1 500ML.BAG IV SCH (13:15)
[2023-01-20] MEDS: ACETAMINOPHEN TAB 500 MG TAB PO SCH ×2 (16:28→23:59)
--- NOTE | 2023-01-20 17:06 | P.HPOB ---
History of Present Illness H&P Date: 01/20/23 Chief Complaint: repeat low transverse 27 year old presents for repeat low transverse at 39 weeks 4 days. Review of Systems All systems: negative Constitutional: Denies chills, Denies fever Eyes: denies blurred vision, denies pain Ears, nose, mouth and throat: Denies headache, Denies sore throat Cardiovascular: Denies chest pain, Denies shortness of breath Respiratory: Denies cough Gastrointestinal: Denies abdominal pain, Denies diarrhea, Denies nausea, Denies vomiting Genitourinary: Denies dysuria, Denies hematuria Musculoskeletal: Denies myalgias Integumentary: Denies pruritus, Denies rash Neurological: Denies numbness, Denies weakness Psychiatric: Denies anxiety, Denies depression Endocrine: Denies fatigue, Denies weight change Past Medical History Past Medical History: Seizure Disorder, Skin Disorder Additional Past Medical History / Comment(s): Anxiety/depression, migraines History of Any Multi-Drug Resistant Organisms: None Reported Past Surgical History: Section Additional Past Surgical History / Comment(s): Nasel polyp, wisdom teeth Past Anesthesia/Blood Transfusion Reactions: No Reported Reaction Past Psychological History: Anxiety, Depression Smoking Status: Unknown if ever smoked Past Alcohol Use History: None Reported Past Drug Use History: Marijuana - Past Family History Mother Family Medical History: No Reported History Medications and Allergies Home Medications Medication Instructions Recorded Confirmed Type Pnv No.154/Iron Fum/Folic Acid 1 each PO DAILY 01/20/23 01/20/23 History [ Plus Vitamin Tablet] Allergies Allergy/AdvReac Type Severity Reaction Status Date / Time No Known Allergies Allergy Verified 01/20/23 10:16 Exam Osteopathic Statement: *. No significant issues noted on an osteopathic structural exam other than those noted in the History and Physical/Consult. Vital Signs Temp Pulse Resp BP Pulse Ox 01/20/23 15:14 97.6 F 80 17 107/66 99 01/20/23 14:44 53 L 16 98/56 99 01/20/23 14:14 53 L 16 96/57 98 01/20/23 13:59 61 17 94/57 99 01/20/23 13:44 57 L 17 92/55 99 01/20/23 13:29 75 18 103/55 98 01/20/23 13:14 60 17 99/58 100 01/20/23 10:16 98.6 F 83 18 113/74 99 Intake and Output 01/20/23 01/20/23 01/20/23 06:59 14:59 22:59 Output Total 933 399 Balance -933 -399 Output: Urine 200 200 Output, Quantitative 733 199 Blood Loss Other: Weight 68.039 kg Heart: Regular rate and rhythm Lungs: Clear to auscultation bilaterally Abdomen: Soft, nontender Extremities: Negative Homans sign Results Result Diagrams: 01/20/23 10:23 Abnormal Lab Results - Last 24 Hours (Table) 01/20/23 Range/Units 10:23 Hgb 10.8 L (11.4-16.0) gm/dL Hct 33.0 L (34.0-46.0) % Assessment and Plan (1) Previous delivery, antepartum Current Visit: Yes Status: Acute Code(s): O34.219 - MATERNAL CARE FOR UNSP TYPE SCAR FROM PREVIOUS DEL SNOMED Code(s): 587100709 (2) Family planning Current Visit: Yes Status: Acute Code(s): Z30.09 - ENCOUNTER FOR OTH GENERAL CNSL AND ADVICE ON CONTRACEPTION SNOMED Code(s): 176356805 Plan: 1. repeat low transverse with tubal ligation
--- NOTE | 2023-01-20 17:10 | P.OP ---
Date of Procedure: 01/20/23 Preoperative Diagnosis: 1. previous 2. family planning Postoperative Diagnosis: same Procedure(s) Performed: Repeat low transverse with tubal ligation Anesthesia: spinal Surgeon: Gem Serrano Blogs Manager #1: Ana María Cosme Estimated Blood Loss (ml): 733 IV fluids (ml): 1,200 Urine output (ml): 300 Pathology: other (segments of bilateral fallopian tubes) Condition: stable Disposition: PACU Operative Findings: Viable female, Apgars 9, 9, weight 7 lbs. 8 oz. Description of Procedure: Patient was taken to the operating room where spinal anesthesia was found be adequate. She was prepped and draped in normal sterile fashion in dorsal supine position with a leftward tilt. Pfannenstiel skin incision was made the scalpel and carried through to the underlying layer of fascia with the scalpel. Fascia was incised in midline and carried bilaterally with the Putnam scissors. The superior aspect of the fascial incision was grasped with Millicent clamps elevated a nd the underlying rectus muscles dissected off with the Putnam's. Attention was then turned to inferior aspect of same incision which in a similar fashion was grasped tented up and the underlying rectus muscles dissected off with the Putnam's. The rectus muscles were the midline and the peritoneum was identified tented up and entered sharply with the scalpel. The incision was extended superiorly and inferiorly with good visualization of the bladder. The bladder blade was inserted and the vesicouterine peritoneum was incised the Metzenbaums then carried bilaterally and bladder flap created digitally. A low transverse incision was then made on the uterus with the scalpel. This was carried bilaterally and digital manner. 's head delivered atraumatically, nose and mouth bulb suctioned, cord clamped and cut, handed off to waiting nurses. Apgars 9,9, weight 7 lbs. 8 oz. Placenta delivered manually, intact with three-vessel cord. The uterus is exteriorized and cleared of all clots and debris. The uterine incision was closed with 0 Vicryl in a running locked fashion. Second layer of the same sutures used in imbricating fashion to obtain excellent hemostasis. Bladder flap was then reapproximated using 2-0 Vicryl in a running fashion. Both ovaries and tubes appeared normal. The right fallopian tube was grasped with a hemostat and a window was made in the mesosalpinx with the Bovie. The fallopian tube was doubly ligated segment was removed. The pedicles were cauterized with the Bovie. The left fallopian tube was grasped with a hemostat and a window was made in the mesosalpinx with the Bovie. The fallopian tube was doubly ligated segment was removed. The pedicles were cauterized with the Bovie. The uterus was placed back into the abdomen. The peritoneum was reapproximated using 2-0 Vicryl in a running fashion. The muscles were reapproximated using 2-0 Vicryl in interrupted fashion. The fascia was reapproximated using 0 Vicryl in a running fashion. The subcutaneous tissues closed with 3-0 Vicryl running fashion. The skin was closed sidney. Patient tolerated the procedure well, sponge and instrument counts were correct times 2 and she was taken to the recovery room in stable condition.
[2023-01-20] MEDS ORDERED: Rhogam IMMUNE GLOBULIN 1,500 UNIT/1 ML IM ONE (19:30)
[2023-01-20] MEDS: KETOROLAC 15 MG/ML 1 ML VIAL IVP SCH (20:30)
[2023-01-20] MEDS: SENNOSIDES-DOCUSATE SODIUM 1 EACH TAB PO SCH (20:30)
[2023-01-20] MEDS: LACTATED RINGERS 1,000 ML IV SCH ×2 (22:59→23:00)
[2023-01-20] MEDS: IBUPROFEN 600 MG TAB PO SCH (23:00)
[2023-01-21] MEDS: LACTATED RINGERS 1,000 ML IV SCH (02:32)
[2023-01-21] MEDS: IBUPROFEN 600 MG TAB PO SCH ×5 (02:44→23:09)
[2023-01-21] MEDS: KETOROLAC 15 MG/ML 1 ML VIAL IVP SCH ×2 (02:44→21:25)
[2023-01-21] MEDS: ACETAMINOPHEN TAB 500 MG TAB PO SCH ×3 (05:56→19:58)
[2023-01-21 07:06] LABS: Basophils % (A) 0 %; Eosinophils # (A) 0.1 k/uL (0-0.7); Eosinophils % (A) 1 %; HGB 9.7 gm/dL (11.4-16.0); Hypochromasia Slight; Lymphocytes # (A) 1.6 k/uL (1.0-4.8); Lymphocytes % (A) 13 %; MCH 27.6 pg (25.0-35.0); MCHC 32.3 g/dL (31.0-37.0); MCV 85.6 fL (80.0-100.0); Mean Platelet Volume 9.6; Monocytes # (A) 0.7 k/uL (0-1.0); Monocytes % (A) 6 %; Neutrophils # (A) 9.5 k/uL (1.3-7.7); Neutrophils % (A) 79 %; Platelet Count 197 k/uL (150-450); RDW 14.2 % (11.5-15.5)
--- NOTE | 2023-01-21 07:24 | P.PN ---
Progress Note - Text Progress Note Date: 01/21/23 Postoperative day 1 status post section under spinal anesthesia and in trathecal Duramorph for postoperative analgesia.The patient is doing well, there is mild generalized skin itching. There are no other anesthesia related complications. The patient denies any paresthesia or weakness in the lower extremities. Patient denies any headache. Further management as per the patient primary team.
--- NOTE | 2023-01-21 08:05 | P.PNOBGPC ---
Subjective - Subjective Principal diagnosis: Status post primary low transverse postop day 1 Interval history: Patient seen and examined. Denies nausea, vomiting, chest pain, shortness of breath or calf pain. Patient reports: Reports appetite normal, Reports voiding normally, Reports pain well controlled, Reports ambulating normally [place]: doing well Objective - Vital Signs Latest vital signs: Vital Signs Temp Pulse Resp BP Pulse Ox 01/21/23 05:00 15 99 01/21/23 04:00 98.7 F 58 L 15 95/64 99 01/21/23 02:31 15 01/21/23 01:00 14 99 01/21/23 00:00 98.9 F 56 L 16 99/61 99 01/20/23 23:00 16 01/20/23 21:00 16 100 01/20/23 20:00 98.4 F 72 16 99/59 100 01/20/23 19:00 17 01/20/23 15:14 97.6 F 80 17 107/66 99 01/20/23 14:44 53 L 16 98/56 99 01/20/23 14:14 53 L 16 96/57 98 01/20/23 13:59 61 17 94/57 99 01/20/23 13:44 57 L 17 92/55 99 01/20/23 13:29 75 18 103/55 98 01/20/23 13:14 60 17 99/58 100 01/20/23 10:16 98.6 F 83 18 113/74 99 Intake and Output 01/20/23 01/21/23 01/21/23 22:59 06:59 14:59 Output Total 1199 600 Balance -1199 -600 Output: Urine 1000 600 Uretheral ([place]) 400 Output, Quantitative 199 Blood Loss Other: # Voids 1 - Exam Lungs: bilateral: normal Chest: Normal S1, Normal S2 Extremities: Present: normal Abdomen: Present: normal appearance, soft. Absent: distention, tenderness Incision: Present: normal, dry, intact Uterus: Present: normal, firm - Labs Labs: Abnormal Lab Results - Last 24 Hours (Table) 01/20/23 01/21/23 Range/Units 10:23 05:42 WBC 12.0 H (3.8-10.6) k/uL RBC 3.50 L (3.80-5.40) m/uL Hgb 10.8 L 9.7 L (11.4-16.0) gm/dL Hct 33.0 L 30.0 L (34.0-46.0) % Neutrophils # 9.5 H (1.3-7.7) k/uL Assessment and Plan (1) Previous delivery, antepartum Current Visit: Yes Status: Resolved Code(s): O34.219 - MATERNAL CARE FOR UNSP TYPE SCAR FROM PREVIOUS DEL SNOMED Code(s): 513018070 (2) Family planning Current Visit: Yes Status: Resolved Code(s): Z30.09 - ENCOUNTER FOR OT GENERAL CNSL AND ADVICE ON CONTRACEPTION SNOMED Code(s): 480639284 (3) Status post repeat low transverse section Current Visit: Yes Status: Acute Code(s): Z98.891 - HISTORY OF UTERINE SCAR FROM PREVIOUS SURGERY SNOMED Code(s): 791475424 (4) Status post tubal ligation at time of delivery, current hosp Current Visit: Yes Status: Acute Code(s): O80 - ENCOUNTER FOR FULL-TERM UNCOMPLICATED DELIVERY; Z30.2 - ENCOUNTER FOR STERILIZATION SNOMED Code(s): 09665968182109 Plan: 1. By mouth pain medication 2. Increase ambulation 3. Regular diet
[2023-01-21] MEDS: SENNOSIDES-DOCUSATE SODIUM 1 EACH TAB PO SCH ×2 (09:21→19:59)
[2023-01-22] MEDS: ACETAMINOPHEN TAB 500 MG TAB PO SCH ×2 (02:04→07:50)
[2023-01-22] MEDS: IBUPROFEN 600 MG TAB PO SCH (05:14)
--- NOTE | 2023-01-22 07:15 | P.DS ---
Providers Date of admission: 01/20/23 10:08 Expected date of discharge: 01/22/23 Attending physician: Gem Serrano Primary care physician: Stated None - Discharge Diagnosis(es) (1) Previous delivery, antepartum Current Visit: Yes Status: Resolved (2) Family planning Current Visit: Yes Status: Resolved (3) Status post repeat low transverse section Current Visit: Yes Status: Acute (4) Status post tubal ligation at time of delivery, current hosp Current Visit: Yes Status: Acute Hospital Course: Patient presented for repeat low transverse with tubal ligation. She underwent this procedure without complication. Postoperative course has been uneventful. She denies nausea, vomiting, chest pain, shortness of breath or calf pain. She'll be discharged home day #1 in stable condition to follow-up with me in one week. Plan - Discharge Summary New Discharge Prescriptions: New Ibuprofen [Motrin] 600 mg PO Q6HR PRN #30 tab PRN Reason: Mild Pain Or Fever >= 100.5 oxyCODONE HCL [OxyIR] 5 mg PO Q4H PRN 3 Days #18 tab PRN Reason: Pain No Action Pnv No.154/Iron Fum/Folic Acid [ Plus Vitamin Tablet] 1 each PO DAILY Discharge Medication List Pnv No.154/Iron Fum/Folic Acid [ Plus Vitamin Tablet] 1 each PO DAILY 01/20/23 [History] Ibuprofen [Motrin] 600 mg PO Q6HR PRN #30 tab 01/22/23 [Rx] oxyCODONE HCL [OxyIR] 5 mg PO Q4H PRN 3 Days #18 tab 01/22/23 [Rx] Follow up Appointment(s)/Referral(s): Gem Serrano DO [Doctor of Osteopathic Medicine] - 1 Week (PO 01/30/2023 @1:15 PP 03/04/23 @10:45) Discharge Disposition: HOME SELF-CARE
[2023-01-22 08:08] VITALS: BP 120/65; PULSE 72; RESP 16; TEMP 98.3
[2023-01-22] MEDS: SENNOSIDES-DOCUSATE SODIUM 1 EACH TAB PO SCH (10:51)
== END 2023-01-22 10:45 | disposition home or self-care (01) | DRG 539 ==
LOC: 4FBP 10:08
PROVIDERS: ADMIT Obstetrics & Gynecology; ATTEND Obstetrics & Gynecology
PROC: 0UB70ZZ Excision of Bilateral Fallopian Tubes, Open Approach (ICD-10-PCS; 2023-01-20)
PROC: 10D00Z1 Extraction of Products of Conception, Low, Open Approach (ICD-10-PCS; principal; 2023-01-20 12:00)
DX: O34.211 Maternal care for low transverse scar from previous cesarean delivery (principal); O99.344 Other mental disorders complicating childbirth; G40.909 Epilepsy, unspecified, not intractable, without status epilepticus; O99.354 Diseases of the nervous system complicating childbirth; Z30.2 Encounter for sterilization; Z37.0 Single live birth; Z3A.39 39 weeks gestation of pregnancy; F41.9 Anxiety disorder, unspecified; F32.A Depression, unspecified; O99.73 Diseases of the skin and subcutaneous tissue complicating the puerperium; L29.9 Pruritus, unspecified
CPT/HCPCS: 85025; 85461; 86850; 86900; 86901; 88302